=== PATIENT | female | born 1990 | race African-American/Black ===

== ENCOUNTER 2016-12-28 09:52 | Emergency (ER) | payer MEDICAID ==
[~2016-12-28] VITALS: Ht 157.5 cm; Wt 106.5 kg
[~2016-12-28 09:52] MED LIST: PROM6.256 PO
[2016-12-28 09:54] VITALS: BP 157/78; PULSE 102; RESP 20; TEMP 99; O2SAT 100
[2016-12-28] MEDS ORDERED: ANTI2TAB PO (10:34)
[2016-12-28] MEDS ORDERED: ZOFR4TAB3 SL (10:34)
--- NOTE | 2016-12-28 10:34 | PD ---
HPI Chief Complaint: GI Complaint Time Seen by Provider: 10:22 Travel History International Travel<30 days: No Contact w/Intl Traveler<30days: No Traveled to known affect area: No History of Present Illness HPI This is a 26-year-old female who presents to the emergency department with vomiting and diarrhea. Last night she had 2 episodes where she vomited some yellow vomit. She went to sleep and then this morning she had 4 episodes of loose stool and 2 more episodes of vomiting. She describes abdominal pain in the epigastrium, constant, moderate severity, nonradiating. She denies any fevers or chills. She doesn't know of any sick contacts. She does work in a care home. She had her last menstrual cycle 2 weeks ago. PFSH Past Medical History Hx Anticoagulant Therapy: No Cardiovascular Problems: No Chemotherapy: No Cerebrovascular Accident: No Diabetes: No Diminished Hearing: No Respiratory: No ?: Not LMP: LMP December 07, 2016 : 1 Para: 1 Past Surgical History Section: Yes Social History Alcohol Use: No Tobacco Use: No Substance Use: No Allergies-Medications (Allergen,Severity, Reaction): Coded Allergies: aspirin (Unverified Allergy, Severe, 12/17/16) Reported Meds & Prescriptions Reported Meds & Active Scripts Active Promethazine-Codeine Liq 6.25-10 Mg/5 Ml Syrp 10 Ml PO Q6H PRN Review of Systems Except as stated in HPI: all other systems reviewed are Neg Physical Exam Narrative GENERAL:Well appearing, no acute distress SKIN: Focused skin assessment warm and dry. HEAD: Atraumatic. Normocephalic. EYES: Pupils equal and round. No injection or drainage. ENT: Moist mucous membranes NECK: Trachea midline. CARDIOVASCULAR: Regular rate and rhythm. No murmur appreciated. RESPIRATORY: Clear to auscultation. Breath sounds equal bilaterally. GASTROINTESTINAL: Abdomen soft, tender to palpation in the epigastrium with no rebound or guarding. MUSCULOSKELETAL: No obvious deformities. NEUROLOGICAL: Awake and alert. No obvious cranial nerve deficits. Moving all extremities. PSYCHIATRIC: Appropriate mood and affect; insight and judgment normal. Data Data Last Documented VS Vital Signs Date Time Temp Pulse Resp B/P (MAP) Pulse Ox O2 Delivery O2 Flow Rate FiO2 12/28/16 09:54 99.0 102 20 157/78 (104) 100 Room Air MDM Medical Decision Making Medical Screen Exam Complete: Yes Emergency Medical Condition: Yes Interpretation(s) Temperature is 99.0, tachycardic, hypertensive Differential Diagnosis Viral gastroenteritis, appendicitis, gastritis, colitis Narrative Course This is a 26 year old female who presents to the emergency department with nausea vomiting and diarrhea since yesterday. She has a benign abdomen and is only tender in the epigastrium with no tenderness in the right lower quadrant. I had a conversation with the patient her options. I did offer her an IV with labs and IV hydration. She would prefer to try to manage this with oral medications and if she feels worse she'll return to the emergency Department. I really think this is viral gastroenteritis. I very low suspicion for appendicitis given her exam and her symptom complex. If she feels worse she'll return to the emergency department at which time we should perform labs and a CT scan. Patient will be discharged home with Imodium and Zofran. Diagnosis Primary Impression: Viral gastroenteritis Patient Instructions: General Instructions Additional Instructions: If you develop lightheadedness, dizziness, persistent vomiting, inability to eat , or severe abdominal pain return to the emergency department. Followup with your primary care physician in 2-3 days if your symptoms have not resolved. Wash your hands aggressively after using the restroom as to not spread your illness to others. Do not return to work until your symptoms have resolved. Take Zofran as needed for nausea. Med/Other Pt SpecificInfo: Prescription(s) given Scripts Loperamide (Anti-Diarrheal) 2 Mg Tab 2 MG PO DIRECTED Y for DIARRHEA, #14 TAB 0 Refills Take 4 mg after 1st loose stool, then take 2 mg after each subsequent stool. Max 8 mg/day. Prov: Jyoti Parker MD 12/28/16 Ondansetron Odt (Zofran Odt) 4 Mg Tab 4 MG SL Q6HR Y for Nausea/Vomiting, #15 TAB 0 Refills Prov: Jyoti Parker MD 12/28/16 Disposition: 01 DISCHARGE HOME Condition: Stable Jyoti Parker MD Dec 28, 2016 10:34
[2016-12-28] MEDS ORDERED: LOPERAMIDE HCL 2 MG CAP PO ONE (10:45)
[2016-12-28] MEDS ORDERED: ONDANSETRON ODT 4 MG TAB PO ONE (10:45)
== END 2016-12-28 10:48 | disposition home or self-care (01) ==
LOC: NEPD 09:52
DX: A08.4 Viral intestinal infection, unspecified (principal); R10.13 Epigastric pain
CPT/HCPCS: 99283

== ENCOUNTER 2017-03-20 08:58 | Emergency (ER) | payer MEDICAID ==
[~2017-03-20] VITALS: Ht 157.5 cm; Wt 110.0 kg
[~2017-03-20 08:58] MED LIST changes: +ANTI2TAB10 PO; +ZOFR4TAB3 SL
[2017-03-20 08:59] VITALS: BP 159/73; PULSE 88; RESP 16; TEMP 98.6; O2SAT 100
[2017-03-20] MEDS ORDERED: AMOX875T PO (10:12)
--- NOTE | 2017-03-20 10:13 | PD ---
HPI . Right ear pain Chief Complaint: ENT Complaint Time Seen by Provider: 09:41 Travel History International Travel<30 days: No Contact w/Intl Traveler<30days: No Traveled to known affect area: No History of Present Illness HPI 27-year-old female presents emergency department for evaluation of right ear pain 3 days. Patient denies any discharge or blood from the ear. Patient denies any recent swimming. She denies any fever, chills, malaise, shortness of breath, chest pain, throat pain, dentalgia, jaw pain. Patient denies any major medical history. Patient doesn't take any daily medication. PFSH Past Medical History Hx Anticoagulant Therapy: No Cardiovascular Problems: No Chemotherapy: No Cerebrovascular Accident: No Diabetes: No Diminished Hearing: No Respiratory: No ?: Not LMP: 02/16/17 : 1 Para: 1 Past Surgical History Section: Yes Social History Alcohol Use: No Tobacco Use: No Substance Use: No Allergies-Medications (Allergen,Severity, Reaction): Coded Allergies: aspirin (Unverified Allergy, Severe, 12/17/16) Reported Meds & Prescriptions Reported Meds & Active Scripts Active Review of Systems Except as stated in HPI: all other systems reviewed are Neg HENT: Positive: Earache Physical Exam Narrative GENERAL: Well-nourished, well-developed 27-year-old female patient in no acute distress. Nontoxic appearing. SKIN: Focused skin assessment warm/dry. HEAD: Normocephalic. Traumatic. EYES: No scleral icterus. No injection or drainage. ENT: Mucosa pink and moist. No erythema or exudates. No uvular edema. No uvular , palatal, or tonsillar deviation. Airway patent. Nasal turbinates appear normal without nasal blood, purulent drainage or septal hematoma. EARS: Bilateral pinnae and external canals appear within normal limits. Right tympanic membrane erythematous and dull without perforation. Left tympanic membrane without erythema, dullness or perforation. THROAT: No pharyngeal injection, exudates, or tonsillar hypertrophy. Airway is patent. NECK: Supple, trachea midline. No JVD or lymphadenopathy. CARDIOVASCULAR: Regular rate and rhythm without murmurs, gallops, or rubs. RESPIRATORY: Breath sounds equal bilaterally. No accessory muscle use. MUSCULOSKELETAL: No cyanosis, or edema. Data Data Last Documented VS Vital Signs Date Time Temp Pulse Resp B/P (MAP) Pulse Ox O2 Delivery O2 Flow Rate FiO2 03/20/17 08:59 98.6 88 16 159/73 (101) 100 Room Air MDM Medical Decision Making Medical Screen Exam Complete: Yes Emergency Medical Condition: Yes Differential Diagnosis Differential diagnoses include but not limited to otitis media, upper respiratory infection, otitis externa Narrative Course 27-year-old female patient presents emergency department for evaluation of right ear pain 3 days. Patient has any fever, chills, malaise. Patient's physical exam is consistent with right-sided otitis media. Patient will be discharged home with prescription for amoxicillin and instructions to return the emergency Department with any worsening condition but otherwise follow up with primary care. Diagnosis Primary Impression: Otitis media Qualified Codes: H66.90 - Otitis media, unspecified, unspecified ear Referrals: Primary Care Physician Patient Instructions: Ear Infection (ED), General Instructions Additional Instructions: Please return to emergency department if your symptoms return or worsen. Follow up with your primary care provider. Take medications as prescribed. May take ibuprofen or Tylenol as needed for pain or fever. Med/Other Pt SpecificInfo: Prescription(s) given Scripts Amoxicillin (Amoxicillin) 875 Mg Tab 875 MG PO BID for Infection for 10 Days, #20 TAB 0 Refills Prov: Court Small 03/20/17 Disposition: 01 DISCHARGE HOME Condition: Stable Court Small Mar 20, 2017 10:13
== END 2017-03-20 10:50 | disposition home or self-care (01) ==
LOC: NEPD 08:58
DX: H66.91 Otitis media, unspecified, right ear (principal); Z88.6 Allergy status to analgesic agent
CPT/HCPCS: 99283

== ENCOUNTER 2017-07-12 19:40 | Emergency (ER) | payer MEDICAID ==
[~2017-07-12 19:40] MED LIST changes: +AMOX875T PO; -ANTI2TAB10 PO; -PROM6.256 PO; -ZOFR4TAB3 SL
== END 2017-07-12 20:44 | disposition left against medical advice (07) ==
LOC: NED 19:40
DX: R11.10 Vomiting, unspecified (principal); Z53.21 Procedure and treatment not carried out due to patient leaving prior to being seen by health care provider
CPT/HCPCS: 99281